=== PATIENT | male | born 1985 | race Two or more races ===

== ENCOUNTER 2018-02-17 19:12 | Emergency (ER) | payer BC, OTHER ==
[~2018-02-17] VITALS: Ht 175.3 cm; Wt 82.0 kg
[2018-02-17] MEDS ORDERED: IBUPROFEN 600MG TABLET PO ONE (20:00)
[2018-02-17 21:13] VITALS: BP 141/91
== END 2018-02-17 21:38 | disposition home or self-care (01) ==
LOC: ER 19:12
DX: S93.401A Sprain of unspecified ligament of right ankle, initial encounter (principal); S29.012A Strain of muscle and tendon of back wall of thorax, initial encounter; R07.89 Other chest pain; V49.88XA Car occupant (driver) (passenger) injured in other specified transport accidents, initial encounter; Y93.89 Activity, other specified; Y92.89 Other specified places as the place of occurrence of the external cause; Y99.8 Other external cause status
CPT/HCPCS: 71045; 73610; 73630; 99283